=== PATIENT | male | born 1955 | race Caucasian/White ===

== ENCOUNTER 2023-08-01 12:27 | Emergency (ER) | payer BC, SELFPAY ==
[2023-08-01 12:33] VITALS: BP 150/82
--- NOTE | 2023-08-01 14:42 | ED.SKININJ ---
HPI-Injury
General
Chief Complaint: Skin Problem
Source: patient
Exam Limitations: none
Time Seen by Provider: 08/01/23 14:06
Travel History
Have you had any contact with someone who has COVID-19?: No
Do you have any symptoms of coronavirus? Fever > 100 degrees, chills, cough, shortness of breath, sore throat, loss of taste or smell, muscle aches, or headache?: No
History of Present Illness-Injury
Initial Injury comments:
67-year-old male [id number] presents with laceration of left hand he sustained today. He slipped and try to stop his fall by grabbing a trailer and cut his hand on the trailer. Last tetanus may have been 2 years ago but he is not certain.
No other complaints at this time
Phy Exam
Physical Exam
Physical Exam:
General: Well-appearing male no acute respiratory distress
HEENT: Normocephalic atraumatic
Skin: 4 cm ragged laceration volar ulnar aspect left hand at the level of the metacarpals in the transverse direction overlying the ring and small finger. There is no tendon involvement. No significant bleeding or gross contamination
All fingers maintain full range of motion left hand with good sensation and blood flow
Course
Orders/Labs/Results
Orders:
Orders
08/01/23 14:36
Tetanus/Diphth/Acelpertussis [Adacel] 0.5 ml IM .ONCE ONE
Vital Signs
Initial and Last Documented VS:
Initial Vital Signs
Temp Pulse Resp BP Pulse Ox
98 F 57 18 150/82 96
08/01/23 12:33 08/01/23 12:33 08/01/23 12:33 08/01/23 12:33 08/01/23 12:33
Last Documented Vital Signs
Temp Pulse Resp BP Pulse Ox
98 F 57 18 150/82 96
08/01/23 12:33 08/01/23 12:33 08/01/23 12:33 08/01/23 12:33 08/01/23 12:33
MDM/Problems Addressed
Differential Diagnosis Includes:
Laceration left hand. No tendon involvement. The wound was cleansed copiously with saline and closed with 4-0 Prolene sutures after anesthesia was given locally with 1% lidocaine. Total number of 10 sutures were required to provide hemostasis and
wound edge approximation. Antibacterial ointment and a gauze dressing was applied. Tetanus vaccine updated. Stable for discharge
*Critical Care Note
Total Time (30-74mins, 75-104mins- exclusive of procedures): Not Applicable
ED Attending Note
-
Portions of this chart may have been created with voice recognition software.� Occasional wrong word or��sound alike� substitutions may have occurred due to the inherent limitations of voice recognition software.
Discharge Plan
Departure
Patient Disposition: Home (Routine Discharge)
Date of Disposition: 08/01/23
Time of Disposition: 14:46
Patient with high blood pressure during this ER visit?: No
Discharge Problem:
Laceration
Instructions: Laceration Repair With Stitches ED
Prescriptions:
No Action
aspirin [Aspirin Low-Strength] 81 MG tablet,chewable
81 mg PO DAILY
glucosamine martinez 2KCl-chondroit [Glucosamine Sulf-Chondroitin] 1 CAP capsule
1 cap PO DAILY
Centrum Silver Tablet
1 DAILY
Referrals:
Mitchell Turk MD [Family Provider] -
Activity Restrictions/Additional Instructions:
Keep clean. Change dressing as needed. Have sutures removed in 2 weeks.
Interventions
Interventions:
*Risk Screen - Suicide Last Done: 08/01/23 12:33
*General Assessment Last Done: 08/01/23 12:33
*Neglect/Abuse Screening Last Done: 08/01/23 12:33
ED-Skin Assessment Last Done: 08/01/23 13:40
[2023-08-01] MEDS: ADACEL 0.5 ML IM (14:54)
[2023-08-01 15:09] VITALS: BP 139/89
[2023-08-01 15:11] VITALS: BP 139/89
== END 2023-08-01 15:11 | disposition home or self-care (01) ==
LOC: EMR 12:27
PROVIDERS: EMERGENCY PHYSICIAN Emergency Medicine; FAMILY PHYSICIAN Family Medicine
DX: S61.412A Laceration without foreign body of left hand, initial encounter (principal); W45.8XXA Other foreign body or object entering through skin, initial encounter
CPT/HCPCS: 99282; 12001; 90471; 90715